=== PATIENT | female | born 2000 | race Caucasian/White ===

== ENCOUNTER → 2021-06-09 | Outpatient (CLI) | payer OTHER ==
[~2021-06-09] MED LIST: FLUO40CA2 PO
--- NOTE | 2021-06-09 13:05 | RAD ---
EXAM: ULTRASOUND ABDOMEN LIMITED CLINICAL HISTORY: Epigastric pain COMPARISON: None available. TECHNIQUE: Limited ultrasound examination of the right upper quadrant of the abdomen was performed. FINDINGS: The liver length measures 15.2 cm. The visualized pancreas grossly appears unremarkable. The gallblad doug is mildly distended. The gallbladder wall thickness measures 1.2 mm. The right kidney measures 10 .6 x 4.7 x 3.5 cm. The visualized aorta, IVC within normal limits of dimension. IMPRESSION: Unremarkable visualized exam. Electronically signed by: Leo Garcia MD (06/09/2021 1:03 PM) [id number]
== END ==
LOC: US 11:01
PROVIDERS: ATTEND Family Medicine
DX: R10.13 Epigastric pain (principal); K82.8 Other specified diseases of gallbladder
CPT/HCPCS: 76705